=== PATIENT | female | born 1960 | race Caucasian/White ===

== ENCOUNTER 2017-02-15 09:25 | Emergency (ER) | payer MEDICAID ==
--- NOTE | 2017-02-15 09:54 | Emergency Department Record ---
History of Present Illness - General Chief Complaint: Dizziness Stated Complaint: DIZZINESS Time Seen by Provider: 02/15/17 09:45 Source: Patient Mode of Arrival: Wheelchair Limitations: No limitations - History of Present Illness Initial Comments: The patient is here due to a 24 hour hx of dizziness that she describes as Vertigo. She states she has a long hx of similar issues just like this and gets the episodes 3-4 times a month. Today they seem to be worse and her home medicines are not helping. She describes the sensation as feeling like the room is spinning whenever she moves her head or try's to walk. There also is a reported mild nausea with the spinning. The patient did take Antivert but it is not helping. The patient also is having chronic L shoulder pain since a fall last month but did have neg xrays in [facility]. The patient denies any THORNTON, visual changes, fever, or new neck pain with her chronic Vertigo symptoms. MD Complaint: Dizziness Onset/Timin -: Days(s) Timing: Awoke with symptoms Description: Nausea, Other History of Same: Yes History of Trauma: No Severity: Mild Improves With: Nothing Worsens With: Nothing Associated Symptoms: Other - [place] Coma Scale Eye Response: (4) Open spontaneously Motor Response: (6) Obeys commands Verbal Response: (5) Oriented [place] Total: 15 - Related Data Previous Rx's Medication Instructions Recorded Diazepam [Valium] 5 mg PO Q8H #10 tab 02/15/17 Allergies Allergy/AdvReac Type Severity Reaction Status Date / Time duloxetine HCl AdvReac Intermediate NAUSEA Verified 02/15/17 09:44 [From Cymbalta] lidocaine AdvReac Intermediate NAUSEA Verified 02/15/17 09:44 morphine AdvReac Intermediate NAUSEA AND Verified 02/15/17 09:44 VOMITING, light headed Travel Screening - Travel/Exposure Within Last 30 Days Have you traveled within the last 30 days?: No Review of Systems Constitutional: Denies: Chills, Fever Eyes: Denies: Eye discharge ENT: Denies: Congestion Respiratory: Denies: Cough, Dyspnea Cardiovascular: Denies: Chest pain Past Medical History - SOCIAL HISTORY Smoking Status: Former smoker Alcohol Use: None Drug Use: None - RESPIRATORY Hx Respiratory Disorders: No - CARDIOVASCULAR Hx Cardio Disorders: Yes Hx Hypertension: Yes Comment:: high cholestersol - NEURO Hx Neuro Disorders: Yes Hx Headaches: Yes Comment:: vertigo - GI Hx GI Disorders: No - Hx Genitourinary Disorders: No - ENDOCRINE Hx Endocrine Disorders: No - MUSCULOSKELETAL Hx Musculoskeletal Disorders: Yes Hx Arthritis: Yes - PSYCH Hx Psych Problems: No - HEMATOLOGY/ONCOLOGY Hx Hematology/Oncology Disorders: No Family Medical History Any Significant Family History?: Yes Hx Heart Disease: Mother Hx HTN: Father, Mother Physical Exam - General General Appearance: Alert, Oriented x3, Cooperative, No acute distress - Head Head exam: Atraumatic, Normocephalic, Normal inspection - Eye Eye exam: Normal appearance, PERRL, Nystagmus (to the R mainly.) - Neck Neck exam: Normal inspection, Full ROM. negative: Lymphadenopathy, Meningismus , Tenderness - Respiratory Respiratory exam: Normal lung sounds bilaterally. negative: Respiratory distress - Cardiovascular Cardiovascular Exam: Regular rate, Normal rhythm, Normal heart sounds - GI/Abdominal GI/Abdominal exam: Soft, Normal bowel sounds. negative: Tenderness - Extremities Extremities exam: Normal inspection, Full ROM, Normal capillary refill. negative: Tenderness - Neurological Neurological exam: Alert, Oriented X3. negative: Altered, Motor sensory deficit - Psychiatric Psychiatric exam: negative: Anxious, Depressed Course Vital Signs 02/15/17 09:37 Temperature 98.2 F Pulse Rate 78 Respiratory 16 Rate Blood Pressure 142/95 Pulse Ox 96 - Reevaluation(s) Reevaluation #1: The patient is resting comfortably. I did discuss the elevated Alk Phos and the need for F/U with her PCP for recheck. 02/15/17 11:44 Reevaluation #2: The patient is doing much better at this time. Her dizziness is almost completely resolved and she is able to ambulate with no problems or issues. She is ready for home. 02/15/17 12:19 Medical Decision Making - Data Complexity MDM Data: Labs Ordered and/or Reviewed, X-Ray Ordered and/or Reviewed - Lab Data Result diagrams: 02/15/17 10:25 02/15/17 10:25 - Radiology Data Radiology results: Report reviewed (Head CT: Neg per rad.) Disposition Disposition: Discharge Clinical Impression: Vertigo Disposition: Home, Self-Care Condition: (1) Good Instructions: Dizziness (ED) Additional Instructions: Please continue your regular medicines for Vertigo and please use the Valium if needed. Please see your PCP next week for recheck and to also have your Alk Phos lab test rechecked. Return to the ER for any problems. Prescriptions: Diazepam [Valium] 5 mg PO Q8H #10 tab Forms: Patient Portal Access Time of Disposition: 12:18
[2017-02-15] MEDS ORDERED: DIAZEPAM 5 MG/1 ML TUBX IVP ONE ×2 (10:01→11:09)
[2017-02-15] MEDS ORDERED: 0.9 % SODIUM CHLORIDE 1,000 ML BAG IV ONE (10:01)
[2017-02-15] MEDS ORDERED: ONDANSETRON HCL IV 4 MG/2 ML VIAL IV ONE (10:01)
[2017-02-15 10:32] LABS: BASO % 0.3 % (0-6); EOS % 0.9 % (0-6); GRAN % 77.6 % (47-80); HEMATOCRIT 40.3 % (35.0-47.0); HEMOGLOBIN 13.6 gm/dl (11.6-16.0); LYMPH % 15.8 % (16-45); MEAN CELL VOLUME 89.4 fl (81-97); MEAN CORPUSCULAR HEMOGLOBIN 30.2 pg (27-33); MEAN CORPUSCULAR HGB CONC 33.7 g/dl (32-36); MEAN PLATELET VOLUME 8.7 fl (7.4-10.4); MONO % 5.4 % (0-9); PLATELET COUNT 236 K/uL (130-400); RED BLOOD COUNT 4.51 M/uL (3.80-5.40); RED CELL DISTRIBUTION WIDTH 13.4 % (11.5-14.5); WHITE BLOOD COUNT W/O DIFF 7.6 K/uL (4.2-12.2)
[2017-02-15 10:48] LABS: ALB/GLOB RATIO 1.3 (1.1-1.8); ALBUMIN 4.1 gm/dL (3.5-5.0); ALKALINE PHOSPHATASE 166 U/L (38-126); ALT/SGPT 26 U/L (9-52); ANION GAP 8.5 (7-16); AST/SGOT 19 U/L (14-36); BILIRUBIN,TOTAL 0.59 mg/dL (0.2-1.3); BLOOD UREA NITROGEN 11 mg/dL (7-17); CARBON DIOXIDE 26.5 mmol/L (22-30); CREATININE 0.8 mg/dL (0.52-1.04); EST GLOMERULAR FILTRATION RATE > 60 ml/min; GLUCOSE,RANDOM 95 mg/dL (70-110); TOTAL PROTEIN 7.3 gm/dL (6.3-8.2)
[2017-02-15] MEDS ORDERED: DIPHENHYDRAMINE HCL IV 50 MG/ML VIAL IVP ONE (11:09)
== END 2017-02-15 12:27 | disposition home or self-care (01) ==
LOC: ER 09:25
DX: R42 Dizziness and giddiness (principal); R11.0 Nausea; R74.8 Abnormal levels of other serum enzymes; M25.512 Pain in left shoulder; I10 Essential (primary) hypertension
CPT/HCPCS: 99284 ×2; 96376; 96374; 96375; 96361; 85025; 80053; 70450; J2405; J1200; J3360; J7030

== ENCOUNTER 2017-03-19 09:31 | Emergency (ER) | payer MEDICAID ==
--- NOTE | 2017-03-19 09:40 | Emergency Department Record ---
History of Present Illness - General Stated Complaint: VERTIGO Time Seen by Provider: 03/19/17 09:33 Source: Patient Mode of Arrival: Ambulatory Limitations: No limitations - History of Present Illness Initial Comments: 56 yo female presents with dizziness. She has a long history of recurrent episodes of dizziness for many years. She has had recent CT scan and is scheduled for MRI of the brain 03/20/17 for symptoms. She has a feeling of room spinning. No changes in vision or speech. No weakness on one side or the other. She takes Antivert without relief. There is some associated nausea. She was seen in the ED on 02/15 and the [facility] 02/17/17. No other recent changes in her health. Her current episode started on Wednesday. She is not symptomatic if holding still and focuses. The spinning feeling occurs with head turning then resolves when still. No scalp tenderness in the zoroastrian areas. No vomiting. No coordination difficulties. MD Complaint: Dizziness -: Year(s) Timing: Intermittent (since Wednesday (5 days)) Description: "Room spinning" History of Same: Yes History of Trauma: No Severity: Severe Improves With: Remaining still, Rest Worsens With: Movement, Position, Exertion Associated Symptoms: Denies other symptoms - [place] Coma Scale Eye Response: (4) Open spontaneously Motor Response: (6) Obeys commands Verbal Response: (5) Oriented [place] Total: 15 - Symptoms of Stroke Symptoms of stroke: Dizziness - Related Data Previous Rx's Medication Instructions Recorded Ondansetron [Zofran Odt] 4 mg PO Q8H #20 tab.rapdis 03/19/17 Allergies Allergy/AdvReac Type Severity Reaction Status Date / Time duloxetine HCl AdvReac Intermediate NAUSEA Verified 03/19/17 09:46 [From Cymbalta] lidocaine AdvReac Intermediate NAUSEA Verified 03/19/17 09:46 morphine AdvReac Intermediate NAUSEA AND Verified 03/19/17 09:46 VOMITING, light headed Review of Systems Constitutional: Denies: Chills, Fever, Malaise, Weakness Eyes: Denies: Eye discharge, Eye pain, Photophobia, Vision change ENT: Denies: Congestion, Ear pain, Hearing loss, Throat pain Respiratory: Denies: Cough, Dyspnea, Hemoptysis, Stridor, Wheezes Cardiovascular: Reports: Syncope (in the past, none current). Denies: Chest pain, Palpitations Endocrine: Denies: Fatigue, Polyuria Gastrointestinal: Reports: Nausea. Denies: Diarrhea Genitourinary: Denies: Dysuria, Urgency Musculoskeletal: Denies: Arthralgia, Back pain, Myalgia, Neck pain Skin: Denies: Bruising Neurological: Reports: Vertigo. Denies: Confusion, Headache, Numbness, Paresthesias, Seizure, Weakness Psychiatric: Denies: Anxiety Hematological/Lymphatic: Denies: Blood Clots, Easy bleeding, Easy bruising, Swollen glands Past Medical History - SOCIAL HISTORY Smoking Status: Former smoker Drug Use: None - RESPIRATORY Hx Respiratory Disorders: No - CARDIOVASCULAR Hx Cardio Disorders: Yes Hx Hypertension: Yes Comment:: high cholestersol - NEURO Hx Neuro Disorders: Yes Hx Headaches: Yes Comment:: vertigo - GI Hx GI Disorders: No - Hx Genitourinary Disorders: No - ENDOCRINE Hx Endocrine Disorders: No - MUSCULOSKELETAL Hx Musculoskeletal Disorders: Yes Hx Arthritis: Yes - PSYCH Hx Psych Problems: No - HEMATOLOGY/ONCOLOGY Hx Hematology/Oncology Disorders: No Family Medical History Hx Heart Disease: Mother Hx HTN: Father, Mother Physical Exam - General General Appearance: Alert, Oriented x3, Cooperative, No acute distress Limitations: No limitations - Head Head exam: Atraumatic, Normocephalic, Normal inspection - Eye Eye exam: Normal appearance, PERRL, Nystagmus (fast component to the right, horizontal, no vertical). negative: Conjunctival injection, Periorbital swelling, Periorbital tenderness Pupils: Normal accommodation. negative: Irregular, Unequal - ENT ENT exam: Normal exam, Mucous membranes moist, Normal external ear exam, Normal orophraynx, TM's normal bilaterally Ear exam: Normal external inspection Nasal Exam: Normal inspection. negative: Discharge Mouth exam: Normal external inspection. negative: Muffled voice Teeth exam: Normal inspection Throat exam: Normal inspection - Neck Neck exam: Normal inspection, Full ROM. negative: Lymphadenopathy, Tenderness, Thyromegaly - Respiratory Respiratory exam: Normal lung sounds bilaterally. negative: Respiratory distress - Cardiovascular Cardiovascular Exam: Regular rate, Normal rhythm, Normal heart sounds Peripheral Pulses: 2+: Radial (R), Radial (L) - GI/Abdominal GI/Abdominal exam: Soft. negative: Tenderness - Rectal Rectal exam: Deferred - exam: Deferred - Extremities Extremities exam: Normal inspection, Full ROM, Normal capillary refill. negative: Pedal edema, Tenderness - Back Back exam: Reports: Normal inspection. Denies: CVA tenderness (R), CVA tenderness (L) - Neurological Neurological exam: Alert, CN II-XII intact, Oriented X3, Reflexes normal, Other (No PND upper or lower, normal FTN bilateral, normal finger tracking, ). negative: Altered, Motor sensory deficit - Psychiatric Psychiatric exam: Normal affect, Normal mood. negative: Agitated, Anxious - Skin Skin exam: Dry, Intact, Normal color, Warm Course - Reevaluation(s) Reevaluation #1: 03/19/17 09:39 EMR reviewed ED visit 02/15/17. HCT was normal at that time [facility] follow up on 02/17/17 with plan for MRI and Neuro referral 09/2014 MRI of the brain was normal Reevaluation #2: No acute changes on the labs. The nausea has resolved. The symptoms are improving We discussed close follow up on Wednesday with her PCP after her MRI tomorrow. 03/19/17 11:05 Reevaluation #3: Patient is ready for DC She will follow up tomorrow as scheduled for her MRI 03/19/17 11:20 Reevaluation #4: At DC the patient states she feels much improved. She ambulates without difficulty. 03/19/17 11:25 Medical Decision Making - Lab Data Result diagrams: 03/19/17 10:15 03/19/17 10:15 Disposition Disposition: Discharge Clinical Impression: Vertigo Disposition: Home, Self-Care Condition: (1) Good Instructions: Vertigo (ED) Additional Instructions: Return if worse, vomiting, or any new symptoms that have not occurred such as changes in vision, speech, weakness Follow up tomorrow at 11am for your MRI Follow up Wednesday with [facility] Prescriptions: Ondansetron [Zofran Odt] 4 mg PO Q8H #20 tab.rapdis Forms: Patient Portal Access Time of Disposition: 11:13
[2017-03-19] MEDS ORDERED: 0.9 % SODIUM CHLORIDE 1,000 ML BAG IV ONE (09:55)
[2017-03-19] MEDS ORDERED: DIPHENHYDRAMINE HCL IV 50 MG/ML VIAL IVP ONE (09:55)
[2017-03-19] MEDS ORDERED: ONDANSETRON HCL IV 4 MG/2 ML VIAL IVP ONE (09:55)
[2017-03-19] MEDS ORDERED: DIAZEPAM 5 MG/1 ML TUBX IVP ONE (09:55)
[2017-03-19 10:46] LABS: BASO % 0.4 % (0-6); EOS % 1.3 % (0-6); GRAN % 62.8 % (47-80); HEMATOCRIT 37.2 % (35.0-47.0); HEMOGLOBIN 12.5 gm/dl (11.6-16.0); LYMPH % 29.8 % (16-45); MEAN CELL VOLUME 89.2 fl (81-97); MEAN CORPUSCULAR HGB CONC 33.6 g/dl (32-36); MEAN PLATELET VOLUME 8.8 fl (7.4-10.4); MONO % 5.7 % (0-9); PLATELET COUNT 219 K/uL (130-400); RED BLOOD COUNT 4.17 M/uL (3.80-5.40); WHITE BLOOD COUNT W/O DIFF 5.2 K/uL (4.2-12.2)
[2017-03-19 11:01] LABS: ANION GAP 8.1 (7-16); BLOOD UREA NITROGEN 9 mg/dL (7-17); CARBON DIOXIDE 26.9 mmol/L (22-30); CREATININE 0.7 mg/dL (0.52-1.04); EST GLOMERULAR FILTRATION RATE > 60 ml/min; GLUCOSE,RANDOM 84 mg/dL (70-110)
== END 2017-03-19 11:28 | disposition home or self-care (01) ==
LOC: ER 09:31
DX: R42 Dizziness and giddiness (principal); R11.0 Nausea; I10 Essential (primary) hypertension; Z87.891 Personal history of nicotine dependence
CPT/HCPCS: 99284 ×2; 96374; 96375; 96361; 85025; 80048; J2405; J1200; J3360; J7030

== ENCOUNTER 2017-08-21 12:45 | Emergency (ER) | payer MEDICAID ==
[2017-08-21 13:08] LABS: URINE APPEARANCE CLEAR; URINE BILIRUBIN NEGATIVE (NEGATIVE); URINE BLOOD NEGATIVE (NEGATIVE); URINE COLOR YELLOW; URINE GLUCOSE (UA) NEGATIVE (NEGATIVE); URINE KETONE NEGATIVE (NEGATIVE); URINE LEUKOCYTE ESTERASE NEGATIVE (NEGATIVE); URINE NITRITE NEGATIVE (NEGATIVE); URINE PROTEIN NEGATIVE (NEGATIVE); URINE UROBILINOGEN 0.2 E.U./dL (0.20 - 1.00)
--- NOTE | 2017-08-21 13:21 | Emergency Department Record ---
History of Present Illness - General Chief complaint: Female Urogenital Problem Stated complaint: UTI Time Seen by Provider: 08/21/17 13:06 Source: Patient Mode of Arrival: Ambulatory Limitations: No limitations - History of Present Illness Initial comments: The patient is here due to a one week hx of intermittent dysuria and urinary urgency. The symptoms come and go and are associated with mild suprapubic cramping. She denies any abdominal pain, fever, chills, nausea, vomiting, diarrhea or new back pain. She has had mild R sided back pain intermittently but it is not a lot different from her chronic back problems. The patient also denies any vaginal issues. The patient has had a HALI and has had her ovaries removed in the past. MD Complaint: Dysuria Onset/Timin -: Week(s) Radiation: Suprapubic Severity scale (1-10): 6 Quality: Burning Consistency: Constant Associated Symptoms: Other - Related Data Home Medications Medication Instructions Recorded Confirmed Last Taken Loratadine/Pseudoephedrine 1 tab PO DAILY 08/21/17 08/21/17 08/21/17 [Claritin-D 24 Hour Tablet] Previous Rx's Medication Instructions Recorded Meclizine HCl [Antivert] 25 mg PO Q8H #14 tablet 05/25/17 Allergies Allergy/AdvReac Type Severity Reaction Status Date / Time duloxetine HCl AdvReac Intermediate NAUSEA Verified 08/21/17 13:00 [From Cymbalta] lidocaine AdvReac Intermediate NAUSEA Verified 08/21/17 13:00 morphine AdvReac Intermediate NAUSEA AND Verified 08/21/17 13:00 VOMITING, light headed Travel Screening - Travel/Exposure Within Last 30 Days Have you traveled within the last 30 days?: No - Travel/Exposure Within Last Year Have you traveled outside the [place] in the last year?: No - Additonal Travel Details Have you been exposed to anyone with a communicable illness?: No - Travel Symptoms Symptom Screening: None Review of Systems Constitutional: Denies: Chills, Fever Eyes: Denies: Eye discharge ENT: Denies: Congestion Respiratory: Denies: Cough Past Medical History - SOCIAL HISTORY Smoking Status: Former smoker Alcohol Use: None Drug Use: None - RESPIRATORY Hx Respiratory Disorders: No - CARDIOVASCULAR Hx Cardio Disorders: Yes Hx Hypertension: Yes Comment:: high cholestersol - NEURO Hx Neuro Disorders: Yes Hx Dizziness: Yes Hx Headaches: Yes Comment:: vertigo - GI Hx GI Disorders: No - Hx Genitourinary Disorders: No - ENDOCRINE Hx Endocrine Disorders: No - MUSCULOSKELETAL Hx Musculoskeletal Disorders: Yes Hx Arthritis: Yes - PSYCH Hx Psych Problems: No - HEMATOLOGY/ONCOLOGY Hx Hematology/Oncology Disorders: No Family Medical History Any Significant Family History?: No Hx Heart Disease: Mother Hx HTN: Father, Mother Physical Exam - General General Appearance: Alert, Oriented x3, Cooperative, No acute distress - Head Head exam: Atraumatic, Normocephalic, Normal inspection - Eye Eye exam: Normal appearance, PERRL - Neck Neck exam: Normal inspection, Full ROM. negative: Tenderness - Respiratory Respiratory exam: Normal lung sounds bilaterally. negative: Respiratory distress - Cardiovascular Cardiovascular Exam: Regular rate, Normal rhythm, Normal heart sounds - GI/Abdominal GI/Abdominal exam: Soft, Normal bowel sounds. negative: Distended, Guarding, Rebound, Rigid, Tenderness - Extremities Extremities exam: Normal inspection, Full ROM, Normal capillary refill. negative: Tenderness - Back Back exam: Reports: Normal inspection. Denies: CVA tenderness (R), CVA tenderness (L), Full ROM (decreased chronically due to chronic back pain.), Rash noted, Tenderness, Vertebral tenderness - Neurological Neurological exam: Alert, Normal gait. negative: Abnormal gait, Motor sensory deficit Course Vital Signs 08/21/17 12:47 Temperature 98.5 F Pulse Rate 82 Respiratory 18 Rate Blood Pressure 157/82 Pulse Ox 100 - Reevaluation(s) Reevaluation #1: 08/21/17 13:58 The patient is resting comfortably. I explained to her that her tests are all WNL's and no bladder infection was found. She is to see her PCP for recheck next week. Medical Decision Making - Lab Data Result diagrams: 08/21/17 13:30 08/21/17 13:30 Lab Results 08/21/17 Range/Units 13:02 Urine Color Yellow Urine Appearance Clear Urine pH 6.0 (5.0-8.0) Ur Specific [place] <= 1.005 (1.002-1.030) Urine Protein Negative (NEGATIVE) Urine Glucose (UA) Negative (NEGATIVE) Urine Ketones Negative (NEGATIVE) Urine Blood Negative (NEGATIVE) Urine Nitrite Negative (NEGATIVE) Urine Bilirubin Negative (NEGATIVE) Urine Urobilinogen 0.2 (0.20 - 1.00) E.U./dL Ur Leukocyte Esterase Negative (NEGATIVE) Disposition Disposition: Discharge Clinical Impression: Dysuria Disposition: Home, Self-Care Condition: (1) Good Instructions: Dysuria (ED) Additional Instructions: Please drink plenty of fluids and see your PCP next week if not better. Return to the ER for any pain, fever, or vomiting. Forms: Patient Portal Access Time of Disposition: 13:59 Quality - Quality Measures Quality Measures: N/A - Blood Pressure Screening View Details: Yes Does Patient Have Any of the Following: No Blood Pressure Classification: Pre-Hypertensive BP Reading Systolic Measurement: 157 Diastolic Measurement: 82 Screening for High Blood Pressure: < Pre-Hypertensive BP, F/U Documented > [ G8950] Pre-Hypertensive Follow-up Interventions: Referral to alternative/primary care provider.
[2017-08-21 13:36] LABS: BASO % 0.2 % (0-6); EOS % 2.2 % (0-6); GRAN % 61.3 % (47-80); HEMATOCRIT 37.1 % (35.0-47.0); LYMPH % 28.8 % (16-45); MEAN CELL VOLUME 87.3 fl (81-97); MEAN CORPUSCULAR HEMOGLOBIN 30.6 pg (27-33); MEAN PLATELET VOLUME 8.5 fl (7.4-10.4); MONO % 7.5 % (0-9); PLATELET COUNT 214 K/uL (130-400); RED BLOOD COUNT 4.25 M/uL (3.80-5.40); RED CELL DISTRIBUTION WIDTH 12.9 % (11.5-14.5); WHITE BLOOD COUNT W/O DIFF 6.4 K/uL (4.2-12.2)
[2017-08-21 13:52] LABS: BLOOD UREA NITROGEN 15 mg/dL (6-20); CREATININE 0.7 mg/dL (0.5-0.9); EST GLOMERULAR FILTRATION RATE > 60 mL/min; GLUCOSE,RANDOM 85 mg/dL (74-109)
== END 2017-08-21 14:07 | disposition home or self-care (01) ==
LOC: ER 12:45
DX: R30.0 Dysuria (principal); R39.15 Urgency of urination; M54.9 Dorsalgia, unspecified
CPT/HCPCS: 80048; 81003; 85025; 99283

== ENCOUNTER 2017-09-18 09:39 | Emergency (ER) | payer MEDICAID ==
--- NOTE | 2017-09-18 10:00 | Emergency Department Record ---
History of Present Illness - General Chief Complaint: Dizziness Stated Complaint: dizzy Time Seen by Provider: 09/18/17 09:47 - Related Data Previous Rx's Medication Instructions Recorded Meclizine HCl [Antivert] 25 mg PO Q8H #14 tablet 05/25/17 Diazepam [Valium] 5 mg PO Q8H PRN #20 tab 09/18/17 Allergies Allergy/AdvReac Type Severity Reaction Status Date / Time duloxetine HCl AdvReac Intermediate NAUSEA Verified 09/18/17 09:41 [From Cymbalta] lidocaine AdvReac Intermediate NAUSEA Verified 09/18/17 09:41 morphine AdvReac Intermediate NAUSEA AND Verified 09/18/17 09:41 VOMITING, light headed Past Medical History - SOCIAL HISTORY Smoking Status: Former smoker Drug Use: None - RESPIRATORY Hx Respiratory Disorders: No - CARDIOVASCULAR Hx Cardio Disorders: Yes Hx Hypertension: Yes Comment:: high cholestersol - NEURO Hx Neuro Disorders: Yes Hx Dizziness: Yes Hx Headaches: Yes Comment:: vertigo - GI Hx GI Disorders: No - Hx Genitourinary Disorders: No - ENDOCRINE Hx Endocrine Disorders: No - MUSCULOSKELETAL Hx Musculoskeletal Disorders: Yes Hx Arthritis: Yes - PSYCH Hx Psych Problems: No - HEMATOLOGY/ONCOLOGY Hx Hematology/Oncology Disorders: No Family Medical History Hx Heart Disease: Mother Hx HTN: Father, Mother Course - Reevaluation(s) Reevaluation #1: Patient was up to the bathroom without problems. She states she is feeling better. 09/18/17 11:45 Reevaluation #2: Patient is ready for discharge. She is requesting valium as "the antivert is not working anymore." 09/18/17 11:47 Medical Decision Making - Management Options MDM Management: No Additional Work-up Planned - Data Complexity MDM Data: Labs Ordered and/or Reviewed, EKG Ordered and/or Reviewed (EKG: NSR 70 /min no acute changes, unchanged from 08-28-14.), Decision to Obtain Old Record (Reviewed Head CT 02-15-17: Neg. MRI Brain w/wo contrast unremarkable through the int. 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 continue present meds. Valium 5 mg as needed as directed for vertigo symptoms. Follow up with PCP next week for recheck. Prescriptions: Diazepam [Valium] 5 mg PO Q8H PRN #20 tab PRN Reason: Vertigo Quality - Quality Measures Quality Measures: N/A - Blood Pressure Screening Does Patient Have Any of the Following: No Blood Pressure Classification: Hypertensive Reading Systolic Measurement: 175 Diastolic Measurement: 100 Screening for High Blood Pressure: < First Hypertensive BP, F/U Documented > [ G8950] First Hypertensive Follow-up Interventions: Follow-up with rescreen GT 1 day and LT 4 weeks.
[2017-09-18] MEDS ORDERED: DIAZEPAM 5 MG/1 ML TUBX IVP ONE (10:12)
[2017-09-18] MEDS ORDERED: CLONIDINE HCL 0.1 MG TABLET PO ONE (10:12)
[2017-09-18] MEDS ORDERED: ONDANSETRON HCL IV 4 MG/2 ML VIAL IVP ONE (10:12)
[2017-09-18] MEDS ORDERED: KETOROLAC 30 MG/ML VIAL IVP ONE (10:12)
[2017-09-18 10:45] LABS: BASO % 0.2 % (0-6); EOS % 1.3 % (0-6); GRAN % 65.5 % (47-80); HEMATOCRIT 39.6 % (35.0-47.0); HEMOGLOBIN 13.5 gm/dl (11.6-16.0); LYMPH % 26.7 % (16-45); MEAN CELL VOLUME 87.6 fl (81-97); MEAN CORPUSCULAR HEMOGLOBIN 29.9 pg (27-33); MEAN CORPUSCULAR HGB CONC 34.1 g/dl (32-36); MEAN PLATELET VOLUME 8.5 fl (7.4-10.4); MONO % 6.3 % (0-9); PLATELET COUNT 216 K/uL (130-400); RED BLOOD COUNT 4.52 M/uL (3.80-5.40); RED CELL DISTRIBUTION WIDTH 13.4 % (11.5-14.5)
[2017-09-18 11:13] LABS: BLOOD UREA NITROGEN 8 mg/dL (6-20); CREATININE 0.7 mg/dL (0.5-0.9); EST GLOMERULAR FILTRATION RATE > 60 mL/min; GLUCOSE,RANDOM 93 mg/dL (74-109); THYROID STIMULATING HORMONE 1.29 uIU/mL (0.270-4.20)
== END 2017-09-18 12:06 | disposition home or self-care (01) ==
LOC: ER 09:39
DX: R42 Dizziness and giddiness (principal); I10 Essential (primary) hypertension; Z87.891 Personal history of nicotine dependence
CPT/HCPCS: 99284 ×2; 96374; 96375; 85025; 80048; 84443; 84484; 93005; 93010; J1885; J2405; J3360

== ENCOUNTER 2017-11-17 10:44 | Emergency (ER) | payer MEDICAID ==
[2017-11-17 11:34] LABS: BASO % 0.2 % (0-6); EOS % 1.6 % (0-6); HEMOGLOBIN 12.8 gm/dl (11.6-16.0); LYMPH % 23.3 % (16-45); MEAN CELL VOLUME 87.6 fl (81-97); MEAN CORPUSCULAR HEMOGLOBIN 29.5 pg (27-33); MEAN CORPUSCULAR HGB CONC 33.7 g/dl (32-36); MEAN PLATELET VOLUME 8.6 fl (7.4-10.4); MONO % 6.9 % (0-9); PLATELET COUNT 233 K/uL (130-400); RED BLOOD COUNT 4.34 M/uL (3.80-5.40); RED CELL DISTRIBUTION WIDTH 13.5 % (11.5-14.5); WHITE BLOOD COUNT W/O DIFF 5.5 K/uL (4.2-12.2)
[2017-11-17 11:46] LABS: BLOOD UREA NITROGEN 11 mg/dL (6-20); CREATININE 0.7 mg/dL (0.5-0.9); EST GLOMERULAR FILTRATION RATE > 60 mL/min
[2017-11-17 11:49] LABS: GLUCOSE,RANDOM 92 mg/dL (74-109)
--- NOTE | 2017-11-17 12:29 | Emergency Department Record ---
History of Present Illness - General Chief Complaint: Fall Injury Stated Complaint: FALL Time Seen by Provider: 11/17/17 10:57 Source: Patient, RN notes reviewed Mode of Arrival: EMS - History of Present Illness Initial Comments: patient fell over backward and landed on her but and back of head. with a LOC of 1 to 2 minutes, no vomiting and her neck hurts and she has chronic low back pain. Right shoulder pain. MD Complaint: Fall -: Hour(s) Fall From: Standing When Fall Occurred: 1 hour BUSINESS [employer] OFF[employer] Fall Witnessed: Yes, by family Place Fall Occurred: Home Loss of Consciousness: Unsure Prolonged Down Time?: No Symptoms Prior to Fall: None Location: Head, Neck Severity: Moderate Severity scale (1-10): 8 Quality: Sharp, Stabbing Context: Tripped/slipped Associated Symptoms: Denies - [place] Coma Scale Eye Response: (4) Open spontaneously Motor Response: (6) Obeys commands Verbal Response: (5) Oriented Hector Total: 15 - Related Data Previous Rx's Medication Instructions Recorded Diazepam [Valium] 5 mg PO Q8H PRN #20 tab 09/18/17 Allergies Allergy/AdvReac Type Severity Reaction Status Date / Time duloxetine HCl AdvReac Intermediate NAUSEA Verified 11/17/17 10:47 [From Cymbalta] lidocaine AdvReac Intermediate NAUSEA Verified 11/17/17 10:47 morphine AdvReac Intermediate NAUSEA AND Verified 11/17/17 10:47 VOMITING, light headed Travel Screening - Travel/Exposure Within Last 30 Days Have you traveled within the last 30 days?: No - Travel/Exposure Within Last Year Have you traveled outside the [place] in the last year?: No - Additonal Travel Details Have you been exposed to anyone with a communicable illness?: No - Travel Symptoms Symptom Screening: None Review of Systems Reviewed: No additional complaints except as noted below Constitutional: Reports: As per HPI. Denies: Chills, Fever, Malaise, Night sweats, Weakness, Weight change Eyes: Reports: As per HPI. Denies: Eye discharge, Eye pain, Photophobia, Vision change ENT: Reports: As per HPI. Denies: Congestion, Dental pain, Ear pain, Epistaxis , Hearing loss, Throat pain Respiratory: Reports: As per HPI. Denies: Cough, Dyspnea, Hemoptysis, Stridor, Wheezes Cardiovascular: Reports: As per HPI. Denies: Arrhythmia, Chest pain, Dyspnea on exertion, Edema, Murmurs, Orthopnea, Palpitations, Paroxysmal nocturnal dyspnea, Rheumatic Fever, Syncope Endocrine: Reports: As per HPI. Denies: Fatigue, Heat or cold intolerance, Polydipsia, Polyuria Gastrointestinal: Reports: As per HPI. Denies: Abdominal pain, Constipation, Diarrhea, Hematemesis, Hematochezia, Melena, Nausea, Vomiting Genitourinary: Reports: As per HPI. Denies: Abnormal menses, Discharge, Dyspareunia, Dysuria, Frequency, Hematuria, Incontinence, Retention, Urgency Musculoskeletal: Reports: As per HPI. Denies: Arthralgia, Back pain, Gout, Joint swelling, Myalgia, Neck pain Skin: Reports: As per HPI. Denies: Bruising, Change in color, Change in hair/ nails, Lesions, Pruritus, Rash Neurological: Reports: As per HPI. Denies: Abnormal gait, Confusion, Headache, Numbness, Paresthesias, Seizure, Tingling, Tremors, Vertigo, Weakness Psychiatric: Reports: As per HPI. Denies: Anxiety, Auditory hallucinations, Depression, Homicidal thoughts, Suicidal thoughts, Visual hallucinations Hematological/Lymphatic: Reports: As per HPI. Denies: Anemia, Blood Clots, Easy bleeding, Easy bruising, Swollen glands Past Medical History - SOCIAL HISTORY Smoking Status: Former smoker Alcohol Use: None Drug Use: None - RESPIRATORY Hx Respiratory Disorders: No - CARDIOVASCULAR Hx Cardio Disorders: Yes Hx Hypertension: Yes Comment:: high cholestersol - NEURO Hx Neuro Disorders: Yes Hx Dizziness: Yes Hx Headaches: Yes Comment:: vertigo - GI Hx GI Disorders: No - Hx Genitourinary Disorders: No - ENDOCRINE Hx Endocrine Disorders: No - MUSCULOSKELETAL Hx Musculoskeletal Disorders: Yes Hx Arthritis: Yes - PSYCH Hx Psych Problems: No - HEMATOLOGY/ONCOLOGY Hx Hematology/Oncology Disorders: No Family Medical History Any Significant Family History?: Yes Hx Heart Disease: Mother Hx HTN: Father, Mother Physical Exam - General General Appearance: Alert, Oriented x3, Cooperative, No acute distress - Head Head exam: Normal inspection - Eye Eye exam: Normal appearance, PERRL Pupils: Normal accommodation - ENT ENT exam: Normal exam, Mucous membranes moist, Normal external ear exam, Normal orophraynx, TM's normal bilaterally Ear exam: Normal external inspection. negative: External canal tenderness Nasal Exam: Normal inspection. negative: Discharge, Sinus tenderness Mouth exam: Normal external inspection, Tongue normal Teeth exam: Normal inspection. negative: Dental caries Throat exam: Normal inspection. negative: Tonsillar erythema, Tonsillar exudate - Neck Neck exam: Normal inspection, Full ROM, Tenderness (neck pain) - Respiratory Respiratory exam: Normal lung sounds bilaterally. negative: Respiratory distress - Cardiovascular Cardiovascular Exam: Regular rate, Normal rhythm, Normal heart sounds - GI/Abdominal GI/Abdominal exam: Soft, Normal bowel sounds. negative: Tenderness - Rectal Rectal exam: Deferred - exam: Deferred - Extremities Extremities exam: Normal inspection, Full ROM, Normal capillary refill. negative: Tenderness - Back Back exam: Reports: Normal inspection, Full ROM. Denies: Muscle spasm, Rash noted, Tenderness - Neurological Neurological exam: Alert, Normal gait, Oriented X3, Reflexes normal - Psychiatric Psychiatric exam: Normal affect, Normal mood - Skin Skin exam: Dry, Intact, Normal color, Warm Course Vital Signs 11/17/17 10:51 Temperature 98.4 F Pulse Rate 72 Respiratory 16 Rate Blood Pressure 144/95 Pulse Ox 100 Medical Decision Making - Data Complexity MDM Data: Labs Ordered and/or Reviewed, X-Ray Ordered and/or Reviewed (CT head and neck negative, Right shoulder xray negative) - Lab Data Result diagrams: 11/17/17 11:27 11/17/17 11:27 Lab Results 11/17/17 11/17/17 Range/Units 11:27 11:27 WBC 5.5 (4.2-12.2) K/uL RBC 4.34 (3.80-5.40) M/uL Hgb 12.8 (11.6-16.0) gm/dl Hct 38.0 (35.0-47.0) % MCV 87.6 (81-97) fl MCH 29.5 (27-33) pg MCHC 33.7 (32-36) g/dl RDW 13.5 (11.5-14.5) % Plt Count 233 (130-400) K/uL MPV 8.6 (7.4-10.4) fl Gran % 68.0 (47-80) % Lymphocytes % 23.3 (16-45) % Monocytes % 6.9 (0-9) % Eosinophils % 1.6 (0-6) % Basophils % 0.2 (0-6) % Sodium 138 (136-145) mmol/L Potassium 4.1 (3.4-4.5) mmol/L Chloride 100 (98-107) mmol/L Carbon Dioxide 25.0 (22-29) mmol/L Anion Gap 13.0 (7-16) BUN 11 (6-20) mg/dL Creatinine 0.7 (0.5-0.9) mg/dL Estimated GFR > 60 mL/min Random Glucose 92 (74-109) mg/dL Calcium 9.2 (8.6-10.0) mg/dL Disposition Clinical Impression: Cervical strain, acute Qualifiers: Encounter type: initial encounter Qualified Code(s): S16.1XXA - Strain of muscle, fascia and tendon at neck level, initial encounter Concussion Qualifiers: Encounter type: initial encounter Loss of consciousness presence/duration: with LOC of 30 min or less Qualified Code(s): S06.0X1A - Concussion with loss of consciousness of 30 minutes or less, initial encounter Disposition: Home, Self-Care Condition: (1) Good Instructions: Head Injury (ED) Additional Instructions: follow up with family in 1-2 weeks tylenol for pain Time of Disposition: 12:30 Quality - Quality Measures Quality Measures: N/A - Blood Pressure Screening Does Patient Have Any of the Following: No Blood Pressure Classification: Hypertensive Reading Systolic Measurement: 144 Diastolic Measurement: 95 Screening for High Blood Pressure: < First Hypertensive BP, F/U Documented > [ G8950] First Hypertensive Follow-up Interventions: Referral to alternative/primary care provider.
--- NOTE | 2017-11-18 09:59 | CT SCAN REPORT ---
EXAM: CT OF THE HEAD WITHOUT CONTRAST HISTORY: FALL WITH TRAUMA TO BACK OF HEAD. TECHNIQUE: Routine noncontrast CT examination of the head was obtained. Comparison: CT of the head without contrast dated 02/15/17. FINDINGS: The ventricles and subarachnoid spaces are normal in size. No area of abnormally increased or decreased attenuation is noted throughout the brain substance. No abnormal extraaxial fluid collection is seen. No skull fracture is identified. A couple retention cysts versus polyps are noted within a posterior left ethmoid air cell, stable. The visualized paranasal sinuses and mastoid air cells are otherwise clear. The orbits as visualized are unremarkable. IMPRESSION: NO INTRACRANIAL ABNORMALITY NOR SKULL FRACTURE IDENTIFIED WITHOUT CHANGE IN APPEARANCE OF THE BRAIN SINCE 02/15/17. SMALL RETENTION CYSTS OR LESS LIKELY POLYPS WITHIN A SINGLE POSTERIOR LEFT ETHMOID AIR CELL. JOB NUMBER: [id number] MTDD
--- NOTE | 2017-11-18 10:06 | CT SCAN REPORT ---
EXAM: CT OF THE CERVICAL SPINE WITHOUT CONTRAST HISTORY: FALL WITH TRAUMA TO BACK OF HEAD. RIGHT SIDED NECK PAIN. TECHNIQUE: Thin collimation helical CT examination of the cervical spine was performed in the axial plane without intravenous contrast. Coronal and sagittal reformatted images are generated and reviewed. Comparison: MRI of the cervical spine without contrast dated 09/04/17. FINDINGS: There is normal bone mineralization. The vertebral bodies are normal in alignment and height. No acute fracture, destructive bone lesion, or prevertebral soft tissue swelling is seen. There is mild disk space narrowing and end plate spurring at the C5-C6 level. There is mild to moderate disk space narrowing at the C6-C7 level associated with end plate/uncovertebral joint spurring. The intervertebral disks are otherwise maintained. A disk spur complex at the C6-C7 level causes mild central canal stenosis. No other osseous cervical spinal stenosis is seen. The neural foramina are grossly patent. Mild facet degenerative changes are noted bilaterally primarily at the mid to upper levels. A couple small retention cysts or less likely polyps are noted within a single posterior left ethmoid air cell. A tiny hypodense nodule is demonstrated in the superior aspect of the right thyroid lobe measuring 3 mm. This is nonspecific though probably benign. No suspicious cervical mass nor adenopathy. The lung apices are clear. There is an impacted/unerupted maxillary wisdom tooth bilaterally. IMPRESSION: 1. NO ACUTE FRACTURE, SUBLUXATION, OR PREVERTEBRAL SOFT TISSUE SWELLING. 2. DEGENERATIVE CHANGES, DETAILED ABOVE WITH POSTERIOR DISK SPUR COMPLEX AT THE C6-C7 LEVEL CAUSING MILD CENTRAL CANAL STENOSIS. JOB NUMBER: [id number] [facility]
--- NOTE | 2017-11-18 10:20 | RADIOLOGY REPORT ---
EXAM: RIGHT SHOULDER COMPLETE HISTORY: RIGHT SHOULDER PAIN POST FALL. TECHNIQUE: Internal and external humerus rotation AP views of the right shoulder were obtained as well as a scapular Y-view. Comparison: None. Encounter: Initial. FINDINGS: There is normal bone mineralization. No acute fracture, dislocation , or destructive bone lesion is seen. The articular relations are maintained. No focal soft tissue abnormality identified. IMPRESSION: NO ACUTE FRACTURE NOR DISLOCATION IDENTIFIED. JOB NUMBER: [id number] MTDD
== END 2017-11-17 12:51 | disposition home or self-care (01) ==
LOC: ER 10:44
DX: S06.0X1A Concussion with loss of consciousness of 30 minutes or less, initial encounter (principal); S16.1XXA Strain of muscle, fascia and tendon at neck level, initial encounter; M25.511 Pain in right shoulder; W00.0XXA Fall on same level due to ice and snow, initial encounter; Y92.009 Unspecified place in unspecified non-institutional (private) residence as the place of occurrence of the external cause
CPT/HCPCS: 70450; 72125; 80048; 85025; 99284

== ENCOUNTER 2018-05-17 11:15 | Emergency (ER) | payer MEDICAID ==
--- NOTE | 2018-05-17 12:08 | Emergency Department Record ---
History of Present Illness - General Chief Complaint: Dizziness Stated Complaint: VERTIGO FOR A WEEK Time Seen by Provider: 05/17/18 12:01 Mode of Arrival: Ambulatory - History of Present Illness Initial Comments: Pt with 5 yr hx of vertigo that is intermittent. Occures 2-3 times a month. This episode is one week in duration which is longer than usual. She has taken her meds - Antivert, Benadryl, and Valium without relief. Dizziness occures with gaze to the right. Better is still. Associated with nausea. No THORNTON or weakness, no change in speach or gait. Has been seen by neurology in past, no hx ENT eval. Onset/Timin -: Week(s) Description: Difficulty walking, "Room spinning" History of Same: Yes History of Trauma: No Severity: Moderate Improves With: Nothing Worsens With: Nothing Associated Symptoms: Other - Related Data Allergies Allergy/AdvReac Type Severity Reaction Status Date / Time duloxetine HCl AdvReac Intermediate NAUSEA Unverified 04/28/18 08:31 [From Cymbalta] lidocaine AdvReac Intermediate NAUSEA Unverified 04/28/18 08:31 morphine AdvReac Intermediate NAUSEA AND Unverified 04/28/18 08:31 VOMITING, light headed Travel Screening - Travel/Exposure Within Last 30 Days Have you traveled within the last 30 days?: No Review of Systems Constitutional: Denies: Chills, Fever Eyes: Denies: Eye discharge, Vision change ENT: Denies: Congestion Respiratory: Denies: Cough, Dyspnea Cardiovascular: Denies: Arrhythmia, Chest pain Endocrine: Denies: Fatigue Gastrointestinal: Reports: Nausea. Denies: Abdominal pain, Vomiting Genitourinary: Denies: Abnormal menses Musculoskeletal: Denies: Arthralgia Skin: Denies: Bruising, Rash Neurological: Reports: Vertigo. Denies: Abnormal gait, Paresthesias Psychiatric: Denies: Anxiety, Depression Hematological/Lymphatic: Denies: Anemia Past Medical History - SOCIAL HISTORY Smoking Status: Former smoker Alcohol Use: None Drug Use: None - RESPIRATORY Hx Respiratory Disorders: No - CARDIOVASCULAR Hx Cardio Disorders: Yes Hx Hypertension: Yes Comment:: high cholestersol - NEURO Hx Neuro Disorders: Yes Hx Dizziness: Yes Hx Headaches: Yes Comment:: vertigo - GI Hx GI Disorders: No - Hx Genitourinary Disorders: No - ENDOCRINE Hx Endocrine Disorders: No - MUSCULOSKELETAL Hx Musculoskeletal Disorders: Yes Hx Arthritis: Yes - PSYCH Hx Psych Problems: No - HEMATOLOGY/ONCOLOGY Hx Hematology/Oncology Disorders: No Family Medical History Any Significant Family History?: Yes Hx Heart Disease: Mother Hx HTN: Father, Mother Physical Exam - General General Appearance: Alert, Oriented x3, Cooperative, No acute distress Limitations: No limitations - Head Head exam: Atraumatic - Eye Eye exam: Normal appearance, PERRL, EOMI, Nystagmus (Nystagmus with right gaze quickly resolves - 2 beats. ). negative: Conjunctival injection - ENT ENT exam: Mucous membranes moist, Normal external ear exam, Normal orophraynx, TM's normal bilaterally - Neck Neck exam: Normal inspection, Full ROM. negative: Lymphadenopathy, Meningismus - Respiratory Respiratory exam: Normal lung sounds bilaterally. negative: Rhonchi, Wheezes - Cardiovascular Cardiovascular Exam: Regular rate, Normal rhythm - GI/Abdominal GI/Abdominal exam: Soft. negative: Guarding, Tenderness - Rectal Rectal exam: Deferred - exam: Deferred - Extremities Extremities exam: Normal inspection. negative: Tenderness - Back Back exam: Reports: Normal inspection. Denies: Muscle spasm - Neurological Neurological exam: Alert, CN II-XII intact, Normal gait, Oriented X3 - Psychiatric Psychiatric exam: Normal affect, Normal mood - Skin Skin exam: Normal color Course Vital Signs 05/17/18 11:36 Temperature 97.9 F Pulse Rate 86 Respiratory 20 Rate Blood Pressure 147/95 Pulse Ox 98 - Reevaluation(s) Reevaluation #1: 05/17/18 13:16 Pt much better with IV valium. Feels improved. Pt states she is comfortable at home with her meds for this issue. We discussed ENT referral. Medical Decision Making - Management Options MDM Management: Additional Work-up Planned (e.g. ADM/Transfer/OP Study) - Data Complexity MDM Data: Labs Ordered and/or Reviewed, Independent Visualization of Image, Tracing, or Specimen - Lab Data Result diagrams: 05/17/18 12:10 05/17/18 12:10 Disposition Disposition: Discharge Clinical Impression: Dizziness Disposition: Home, Self-Care Condition: (1) Good Additional Instructions: See ENT Dr Howard for further evaluation. Call for appointment in the next week. Do NOT drive with your meds or dizziness. Referrals: LEBEDA,DAVID D [] - Forms: Patient Portal Access Quality - Quality Measures Quality Measures: N/A - Blood Pressure Screening Does Patient Have Any of the Following: No Blood Pressure Classification: Hypertensive Reading Systolic Measurement: 147 Diastolic Measurement: 95 Screening for High Blood Pressure: < Pre-Hypertensive BP, F/U Documented > [ G8950] Pre-Hypertensive Follow-up Interventions: Follow-up with rescreen every year.
[2018-05-17] MEDS: SODIUM CHLORIDE 0.9% 500 ML IV ONE (12:23)
[2018-05-17] MEDS: DIAZEPAM 5MG/ML **10ML VIAL IVP ONE (12:23)
[2018-05-17 12:30] LABS: BASO % 0.3 % (0-6); EOS % 1.7 % (0-6); GRAN % 64.5 % (47-80); HEMATOCRIT 37.5 % (35.0-47.0); HEMOGLOBIN 13.4 gm/dl (11.6-16.0); LYMPH % 26.7 % (16-45); MEAN CELL VOLUME 87.6 fl (81-97); MEAN CORPUSCULAR HEMOGLOBIN 31.3 pg (27-33); MEAN CORPUSCULAR HGB CONC 35.7 g/dl (32-36); MEAN PLATELET VOLUME 8.8 fl (7.4-10.4); MONO % 6.8 % (0-9); PLATELET COUNT 223 K/uL (130-400); RED BLOOD COUNT 4.28 M/uL (3.80-5.40); RED CELL DISTRIBUTION WIDTH 13.1 % (11.5-14.5); WHITE BLOOD COUNT W/O DIFF 6.9 K/uL (4.2-12.2)
[2018-05-17 12:39] LABS: BLOOD UREA NITROGEN 12 mg/dL (6-20); CREATININE 0.7 mg/dL (0.5-0.9); EST GLOMERULAR FILTRATION RATE > 60 mL/min
[2018-05-17 12:41] LABS: GLUCOSE,RANDOM 94 mg/dL (74-109)
== END 2018-05-17 14:02 | disposition home or self-care (01) ==
LOC: ER 11:15
DX: R42 Dizziness and giddiness (principal); R11.0 Nausea; I10 Essential (primary) hypertension; Z87.891 Personal history of nicotine dependence
CPT/HCPCS: 80048; 85025; 96361; 96374; 99284; J3360